=== PATIENT | male | born 1945 | race Hispanic/Latino ===

== ENCOUNTER 2022-08-14 18:48 | Emergency (ER) | payer MEDICARE, OTHER, SELFPAY ==
--- NOTE | ~2022-08-14 | CT_ITS ---
EXAMINATION: CT diagnostic chest w con DATE: 08/15/2022 03:56 INDICATION: nodules vs mass seen on outpt CXR, Covid+, SOB TECHNIQUE: Computed tomography (CT) of the chest was performed with 100 mL Omnipaque-350 intravenous contrast. Additional 3D reconstructions utilizing coronal maximum intensity projection (MIP) were per formed. Automated exposure control and iterative reconstruction technique were employed. The dose-quentin gth product was 166.86 mGy-cm. COMPARISON: None FINDINGS: Minimal dependent atelectasis in the bilateral lower lobes. No pneumonia, pulmonary edema, pleural ef fusion or pneumothorax. Heart size is normal. No pericardial effusion. Thoracic aorta is normal in ca liber with no dissection. No pathologically enlarged thoracic lymphadenopathy. Visualized upper abdom en is unremarkable. Moderate to severe thoracic spondylosis. IMPRESSION: 1. Minimal dependent atelectasis in the bilateral lower lobes. No pulmonary nodules or other acute ca rdiopulmonary disease. Reviewed, dictated and finalized at location A. NER CHIEF IMPRESSION: 1. Minimal dependent atelectasis in the bilateral lower lobes. No pulmonary nod ules or other acute cardiopulmonary disease.
[2022-08-14 19:19] VITALS: BP 138/80; PULSE 81; RESP 16; TEMP 36.7; O2SAT 98
[2022-08-14 19:25] VITALS: O2SAT 98
--- NOTE | 2022-08-15 00:51 | PC.NURSE ---
pt up to desk inquiring about wait times. pt informed I am unable to give wait times. pt unhappy. pt back to lobby.
--- NOTE | 2022-08-15 01:39 | ED.URI ---
HPI - URI/Sore Throat General Chief Complaint: Upper Respiratory Infection <TONY Fernandez Last Filed: 08/15/22 02:58> Stated Complaint: sent by US for CT - dry cough and SOB <TONY Fernandez Last Filed: 08/15/22 02:58> Time Seen by Provider: 08/15/22 01:01 <Clara Avila PA-C - Last Filed: 08/15/22 02:58> History of Present Illness HPI Narrative: 77 yo male here for evaluation of a dry cough and sinus congestion for the past several weeks. He presented to an urgent care facility today for his symptoms and had a chest x-ray, and was subsequently referred to the ED for a CT scan of the chest due to abnormalities. He is unsure of what abnormalities were reported and did not bring a copy of the image/results. Patient denies any chest pain, shortness of breath, fevers, chills, nausea, vomiting, leg swelling, . Reports some generalized weakness for several months. He has not taken a COVID or flu test. He is a previous smoker but quit 40 years ago. <TONY Fernandez Last Filed: 08/15/22 02:58> Related Data Allergies/Adverse Reactions: Allergies Allergy/AdvReac Type Severity Reaction Status Date / Time No Known Allergies Allergy Verified 08/14/22 18:49 <TONY Fernandez Last Filed: 08/15/22 02:58> Review of Systems Review of Systems: Gen: Denies fevers or chills Eyes: Denies eye pain or visual change ENT: Denies congestion Respiratory: Reports dry cough CV: Denies chest pain or palpitations GI: Denies abdominal pain nausea, emesis or diarrhea : denies burning, urgency, frequency or hematuria Musculoskeletal: Denies back pain or muscle pain Neuro: Denies numbness, tingling, weakness or focal weakness Skin: Denies rash Except as documented, all other systems reviewed and negative <TONY Fernandez Last Filed: 08/15/22 02:58> Exam Narrative: APPEARANCE: Well appearing, no pain in distress, well-nourished. Head: Normocephalic and atraumatic. EYES: PERRLA/EOMI, conjunctivae clear NOSE: No nasal drainage EARS: External ear normal in appearance THROAT: Oropharynx is clear. Mucous membranes are moist. NECK: Supple. No adenopathy, no masses. RESPIRATORY: Decreased breath sounds throughout lung delaney. Airway patent, respirations nonlabored. no rales, rhonchi, wheezing. CARDIOVASCULAR: Regular rate and rhythm without murmurs, rubs, or gallops. ABDOMINAL: Normoactive bowel sounds. Soft, nontender, nondistended. No rebound tenderness or guarding. MUSCULOSKELETAL: Extremities are warm and well-perfused. Moves all extremities well. No edema. NEURO: Normal speech. No focal neurologic deficits. SKIN: Skin is warm and dry. No rashes. PSYCHIATRIC: Normal affect/mood. <Clara Avila PA-C - Last Filed: 08/15/22 02:58> Course Course Emergency Course: Patient resting comfortably. Patient's son reports they came here to be evaluated for possible COVID-pneumonia as well as a more GI/[facility]OF[facility] at [facility] urgent care. Patient's symptoms started approximately 6 days ago 08/09/2022. Patient is outside the window be treated with Paxil bed. Discharge home. <Juan Lake MD - Last Filed: 08/15/22 06:13> Vital Signs Vital signs: Vital Signs Temperature 98.1 F 08/14/22 19:19 Pulse Rate 81 08/14/22 19:19 Respiratory Rate 16 08/14/22 19:19 Blood Pressure 138/80 08/14/22 19:19 Pulse Oximetry 98 08/14/22 19:19 Oxygen Delivery Room Air 08/14/22 19:19 Temperature 98.1 F 08/14/22 19:19 Pulse Rate 81 08/14/22 19:19 Respiratory Rate 16 08/14/22 19:19 Blood Pressure 144/77 H 08/15/22 02:37 Pulse Oximetry 99 08/15/22 02:45 Oxygen Delivery Room Air 08/15/22 02:59 <Clara Avila PA-C - Last Filed: 08/15/22 02:58> Vital Signs Temperature 98.1 F 08/14/22 19:19 Pulse Rate 81 08/14/22 19:19 Respiratory Rate 16 08/14/22 19:19 Blood Pressure 138/80
[2022-08-15 02:36] VITALS: O2SAT 100
[2022-08-15 02:37] VITALS: BP 144/77; O2SAT 100
[2022-08-15 02:37] LABS: Basophils Percent Auto 0.6 % (0.2-1.2); Eosinophils Absolute Auto 0.4 K/mm3 (0-0.3); Hematocrit 40.6 % (42.0-52.0); Hemoglobin 13.9 g/dL (14.0-18.0); Immature Granulocyte Absolute 0.02 K/mm3 (0.00-0.031); Immature Granulocyte Percent A 0.3 % (0-0.5); Lymphocytes Absolute Auto 2.64 K/mm3 (0.9-3.2); Lymphocytes Percent Auto 41.4 % (18.3-44.2); Mean Corpuscular HGB Conc 34.2 g/dl (32-36); Mean Corpuscular Hemoglobin 29.7 pg (26-34); Mean Corpuscular Volume 86.8 fl (80-100); Mean Platelet Volume 10.8 fl (7.4-10.4); Monocytes Absolute Auto 0.7 K/mm3 (0.1-0.6); Monocytes Percent Auto 10.4 % (2.6-8.5); Neutrophils Absolute Auto 2.6 K/mm3 (1.3-6.7); Neutrophils Percent Auto 41.3 % (45.5-73.1); Platelet Count Result 190 k/mm3 (150-375); Red Blood Count 4.68 M/mm3 (4.6-6.20); Red Cell Distribution Width 12.2 % (11.5-14.5); White Blood Count 6.4 K/mm3 (4.5-10.0)
[2022-08-15 02:45] VITALS: O2SAT 99
[2022-08-15 02:47] LABS: Alanine Aminotransferase 34 U/L (6-50); Albumin Level 4.3 g/dL (3.5-5.1); Alkaline Phosphatase 114 U/L (38-126); Anion Gap 7 mmol/L (8-16); Aspartate Amino Transferase 34 U/L (17-59); Bilirubin,Total 0.6 mg/dL (0.2-1.3); Blood Urea Nitrogen 14 mg/dL (9-20); Calcium 8.5 mg/dL (8.4-10.2); Carbon Dioxide 28 mmol/L (22-30); Chloride 98 mmol/L (98-107); Estimated CRCL calculation 66 ml/min; Estimated Glomerular Filt Rate > 60; Glucose 163 mg/dL (65-110); Potassium 3.7 mmol/L (3.4-5.0); Sodium 133 mmol/L (137-145)
[2022-08-15 03:12] LABS: Influenza A QL RT-PCR Negative (Negative); Influenza B QL RT-PCR Negative (Negative); SARS-CoV-2 RNA PCR Positive
[2022-08-15 06:31] VITALS: BP 118/79; PULSE 84; RESP 18; TEMP 36.9; O2SAT 99
== END 2022-08-15 06:32 | disposition home or self-care (01) ==
PROVIDERS: Emergency Provider Physician Assistant
DX: U07.1 COVID-19 (principal)
CPT/HCPCS: 36415; 71260; 80053; 85025; 87636; 99284; Q9967

== ENCOUNTER 2023-10-26 13:54 | Emergency (ER) | payer MEDICARE, SELFPAY ==
--- NOTE | ~2023-10-26 | XR_ITS ---
EXAMINATION: XR elbow RT min 3V DATE: 10/26/2023 16:34 INDICATION: Right elbow pain post fall TECHNIQUE: Anteroposterior, two oblique and lateral views of the right elbow were obtained. COMPARISON: None. FINDINGS: Nondisplaced intra-articular fracture at the head of the right radial head with <1 mm step-off along the articular cortex. Alignment remains essentially anatomic. No other fractures identified. 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 Right elbow joint effusion with displacement of the anterior fat pad. IMPRESSION: 1. Nondisplaced interarticular fracture of the right radial head. Reviewed, dictated and finalized at location A. ING MANAGER
--- NOTE | ~2023-10-26 | CT_ITS ---
EXAMINATION: CT facial & cervical spine wo DATE: 10/26/2023 16:25 INDICATION: Head injury. Fall. TECHNIQUE: Computed tomography (CT) of the maxillofacial region and cervical spine was performed with out intravenous contrast. Automated exposure control and iterative reconstruction technique were empl oyed. The dose-length product was 422.15 mGy-cm. COMPARISON: None FINDINGS: MAXILLOFACIAL CT: There is rightward deviation of the nasal septum. There are changes of uncinectomies and ethmoidectom ies. No fracture. There is mild mucosal thickening in the paranasal sinuses. There is cerumen in left external auditory canal. CERVICAL SPINE CT: There is mild scarring at the lung apices. There is 9 degrees dextrocurvature of cervical spine. Ther e is kyphosis of cervical spine. There is 2 mm anterolisthesis of C7 on T1. Vertebral body heights ar e normal. There is severely decreased disc height from C3-C4 through C6-C7 and moderately decreased d isc height at C7-T1 The following disc levels are specifically discussed: C2-C3: There is moderate left uncovertebral joint osteoarthritis. There is moderate right and severe left facet joint osteoarthritis. There is mild left neural foraminal stenosis. There is no central ca nal stenosis. C3-C4: There is severe bilateral uncovertebral joint osteoarthritis. There is severe bilateral facet joint osteoarthritis. There is moderate bilateral neural foraminal stenosis. There is mild central ca nal stenosis. C4-C5: There is severe bilateral uncovertebral joint osteoarthritis. There is severe bilateral facet joint osteoarthritis. There is moderate bilateral neural foraminal stenosis. There is mild central ca nal stenosis. C5-C6: There is severe bilateral uncovertebral joint osteoarthritis. There is severe bilateral facet joint osteoarthritis. There is moderate right and mild left neural foraminal stenosis. There is mild central canal stenosis. C6-C7: There is severe bilateral uncovertebral joint osteoarthritis. There is moderate right and nikki re left facet joint osteoarthritis. There is mild bilateral neural foraminal stenosis. There is mild central canal stenosis. C7-T1: There is mild bilateral uncovertebral joint osteoarthritis. There is severe bilateral facet shaji int osteoarthritis. There is moderate right and mild left neural foraminal stenosis. There is no cent ral canal stenosis. IMPRESSION: 1. No fracture. 2. Severe cervical spondylosis. Reviewed, dictated and finalized at location E. IZER
--- NOTE | ~2023-10-26 | CT_ITS ---
EXAMINATION: CT brain wo con DATE: 10/26/2023 16:22 INDICATION: Fall with head injury TECHNIQUE: Computed tomography (CT) of the head was performed without intravenous contrast. Sagittal and coronal reconstructions were performed. The mA was adjusted according to patient size. Iterative reconstruction technique was employed. The dose-length product was 681.00 mGy-cm. COMPARISON: None FINDINGS: No fracture. No acute intracranial hemorrhage, acute infarction or abnormal extra axial fluid collect ion. There is moderate scattered white matter hypoattenuation consistent with chronic small vessel is chemic disease. Symmetric prominent dystrophic calcific lesions at the bilateral basal ganglia and ce rebellar hemispheres. Symmetric prominence of the sulci consistent with mild to moderate age-appropri ate diffuse cerebral volume loss. Ventricles are normal and symmetric. No mass/mass effect. The orbi ts, paranasal sinuses and mastoid air cells are normal. IMPRESSION: 1. No fracture or acute intracranial process. 2. Age-related changes including mild to moderate diffuse volume loss and moderate scattered white ma tter hypoattenuation consistent with chronic small vessel ischemic disease. Reviewed, dictated and finalized at location A. OGRAPHS CURATOR IMPRESSION: 1. No fracture or acute intracranial process. 2. Age-related changes including mild to moderate diffuse volume loss and moder ate scattered white matter hypoattenuation consistent with chronic small vessel ischemic disease.
[2023-10-26 14:03] VITALS: BP 117/58; PULSE 90; RESP 18; TEMP 36.6; O2SAT 97
[2023-10-26 19:19] VITALS: BP 135/91; PULSE 67; RESP 16; TEMP 36.6; O2SAT 100
[2023-10-26] MEDS: TETANUS,DIPHTHERIA,AC PERTUSSIS ADULT (0.5 ML) BOOSTRIX IM (19:21)
--- NOTE | 2023-10-26 20:04 | ED.FALL ---
HPI - Fall General Chief Complaint: Fall Stated Complaint: chin lac, fall Time Seen by Provider: 10/26/23 19:21 History of Present Illness HPI Narrative: 78-year-old male presenting to the emergency department for evaluation after having a ground level fall. Patient states he normally has a shuffling gait to begin with and he fell forward injuring his right elbow and did strike his face and chin on the ground. Patient denies loss consciousness. Patient does have a laceration to his chin and patient does have pain in his right elbow. Related Data Allergies Allergy/AdvReac Type Severity Reaction Status Date / Time No Known Allergies Allergy Verified 08/14/22 18:49 Review of Systems Review of Systems: All systems reviewed & are unremarkable except as noted in HPI and below Exam Narrative: APPEARANCE: Well appearing, no pain, no distress, well-nourished. HEAD: normocephalic, atraumatic. EYES: PERRLA/EOMI, conjunctivae clear. NOSE: Normal no drainage. NECK: Supple. No adenopathy, no masses. RESPIRATORY: Airway patent, respirations nonlabored. Clear to auscultation bilaterally, no rales, rhonchi, wheezing. CARDIOVASCULAR: Regular rate and rhythm without murmurs rubs or gallops. ABDOMINAL: Soft, nontender, nondistended, normal bowel sounds MUSCULOSKELETAL: Right elbow tenderness with no other tenderness to palpation NEURO: Alert. Cranial nerves II through XII intact. Grossly intact SKIN: Laceration to chin Course Course Emergency Course: 78-year-old male presenting to the emergency department for evaluation after having a ground level fall. CT head cervical spine and facial bones showed no acute abnormality. Elbow x-ray was concerning for a radial head fracture. Patient was placed in a sling and was provided outpatient follow-up with orthopedics. Patient did have a laceration to his chin that was repaired as described in the procedure note. All questions concerns were addressed. Both patient and family are comfortable with plan for discharge and close follow-up. Vital Signs Vital signs: Vital Signs Temperature 97.8 F 10/26/23 14:03 Pulse Rate 90 10/26/23 14:03 Respiratory Rate 18 10/26/23 14:03 Blood Pressure 117/58 L 10/26/23 14:03 Pulse Oximetry 97 10/26/23 14:03 Oxygen Delivery Room Air 10/26/23 14:03 Temperature 97.6 F 10/26/23 21:59 Pulse Rate 77 10/26/23 21:59 Respiratory Rate 22 H 10/26/23 21:59 Blood Pressure 136/74 10/26/23 21:59 Pulse Oximetry 98 10/26/23 21:59 Oxygen Delivery Room Air 10/26/23 14:03 Procedures Laceration Laceration 1: Site: face Size (cm): 3 Description: linear Depth: simple, single layer Local Anesthetic: lidocaine 1% Amount of anesthesia used (mL): 3 Pre-repair: wound explored, irrigated and irrigated extensively ====== Skin Level ====== Skin layer closed with: nylon Size (cm): 5-0 Number of sutures: 5 Technique: simple, interrupted ====== Subcutaneous Layer ====== ====== Muscle Layer ====== ====== Tendon Layer ====== MDM - Fall Differential Diagnosis Differential diagnosis: Likely other (Elbow fracture, intracranial head injury, facial fracture, cervical spine fracture, facial laceration) Imaging Data Radiologist's impression: Impressions Head CT 10/26/23 16:24 IMPRESSION: 1. No fracture or acute intracranial process. 2. Age-related changes including mild to moderate diffuse volume loss and moderate scattered white matter hypoattenuation consistent with chronic small vessel ischemic disease. Head/Cervical Spine/Facial Bones CT 10/26/23 16:26 IMPRESSION: 1. No fracture. 2. Severe cervical spondylosis. Elbow X-Ray 10/26/23 16:37 IMPRESSION: 1. Nondisplaced interarticular fracture of the right radial head. Discharge Plan Discharge Clinical Impression: Face lacerations, Closed fracture of radia
[2023-10-26] MEDS: HYDROcodone/acetaminophen (*CRX) 5-325 MG TABLET 1 TAB PO (21:44)
[2023-10-26 21:59] VITALS: BP 136/74; PULSE 77; RESP 22; TEMP 36.4; O2SAT 98
== END 2023-10-26 22:00 | disposition home or self-care (01) ==
PROVIDERS: Emergency Provider Emergency Medicine
DX: S01.81XA Laceration without foreign body of other part of head, initial encounter (principal); S52.124A Nondisplaced fracture of head of right radius, initial encounter for closed fracture; Z23 Encounter for immunization; M47.812 Spondylosis without myelopathy or radiculopathy, cervical region; W18.39XA Other fall on same level, initial encounter
CPT/HCPCS: 12002; 70450; 70486; 72125; 73080; 90471; 90715; 99284; A4565; A9270